=== PATIENT | male | born 1970 | race Caucasian/White ===

== ENCOUNTER 2020-12-20 17:56 | Inpatient (IN) | payer OTHER ==
[~2020-12-20] VITALS: Ht 182.9 cm; Wt 112.1 kg
[2020-12-20 18:49] LABS: BASOPHIL 0.2 % (0-2); EOSINOPHIL 0 % (0-5); HCT 46.8 % (42.0-52.0); HGB 16.3 g/dl (13.2-18.0); LYMPHOCYTE 11.7 % (15-48); MCHC 34.8 g/dL (32.0-36.0); MCV 89.1 fL (78.0-100.0); MONOCYTE 5.9 % (0-12); MPV 10.5 fL (6.0-9.5); NEUTROPHIL 81.7 % (41-80); NRBC 0; PLT 184 K/uL (150-400); RBC 5.25 M/uL (4.70-6.00); RDW 14.3 % (11.5-14.0); WBC 6.1 K/uL (4.0-10.5)
[2020-12-20 19:08] LABS: ALBUMIN 2.9 g/dL (3.4-5.0); BILIRUBIN - TOTAL 0.5 mg/dL (0.2-1.0); BUN/CREAT RATIO (CALC) 19.6 RATIO; CREATININE 1.07 mg/dL (0.67-1.17); GLOBULIN (CALCULATION) 4.3 g/dL; POTASSIUM 3.2 mmol/L (3.5-5.1); TOTAL PROTEIN 7.2 g/dL (6.4-8.2)
[2020-12-21 05:56] LABS: BASOPHIL 0.2 % (0-2); EOSINOPHIL 0 % (0-5); HCT 42.4 % (42.0-52.0); HGB 14.7 g/dl (13.2-18.0); LYMPHOCYTE 18.3 % (15-48); MCH 31.5 pg (25.0-31.0); MCHC 34.7 g/dL (32.0-36.0); MCV 90.8 fL (78.0-100.0); MONOCYTE 9.6 % (0-12); MPV 10.8 fL (6.0-9.5); NEUTROPHIL 71.3 % (41-80); NRBC 0; PLT 182 K/uL (150-400); RBC 4.67 M/uL (4.70-6.00); RDW 14.6 % (11.5-14.0)
[2020-12-21 06:50] LABS: ALBUMIN 2.6 g/dL (3.4-5.0); BILIRUBIN - TOTAL 0.5 mg/dL (0.2-1.0); BUN/CREAT RATIO (CALC) 19.1 RATIO; C-REACTIVE PROTEIN 13.5 mg/dL (<=0.90); CREATININE 1.15 mg/dL (0.67-1.17); GLOBULIN (CALCULATION) 3.2 g/dL; MAGNESIUM 2.1 mg/dL (1.8-2.4); PHOSPHORUS 2.3 mg/dL (2.6-4.7); POTASSIUM 3.8 mmol/L (3.5-5.1); TOTAL PROTEIN 5.8 g/dL (6.4-8.2)
[2020-12-22 05:55] LABS: BASOPHIL 0 % (0-2); EOSINOPHIL 0 % (0-5); HCT 42.8 % (42.0-52.0); HGB 14.5 g/dl (13.2-18.0); LYMPHOCYTE 19.2 % (15-48); MCH 30.9 pg (25.0-31.0); MCHC 33.9 g/dL (32.0-36.0); MCV 91.3 fL (78.0-100.0); MONOCYTE 7.3 % (0-12); MPV 10.3 fL (6.0-9.5); NEUTROPHIL 72.1 % (41-80); NRBC 0; PLT 264 K/uL (150-400); RBC 4.69 M/uL (4.70-6.00); RDW 14.6 % (11.5-14.0); WBC 2.9 K/uL (4.0-10.5)
[2020-12-22 06:15] LABS: BUN/CREAT RATIO (CALC) 16.3 RATIO; C-REACTIVE PROTEIN 8.7 mg/dL (<=0.90); CREATININE 0.86 mg/dL (0.67-1.17); POTASSIUM 4.3 mmol/L (3.5-5.1)
--- NOTE | 2020-12-22 15:12 | NUR ---
12/22/20 Mr. Fontana lives with his father. A referral will be made to [facility] for home 02 per patient choice if needed at discharge.
[2020-12-23 05:48] LABS: BASOPHIL 0.1 % (0-2); EOSINOPHIL 0 % (0-5); HCT 41.8 % (42.0-52.0); HGB 14.3 g/dl (13.2-18.0); LYMPHOCYTE 9.6 % (15-48); MCH 31.1 pg (25.0-31.0); MCHC 34.2 g/dL (32.0-36.0); MCV 90.9 fL (78.0-100.0); MONOCYTE 7.6 % (0-12); MPV 9.8 fL (6.0-9.5); NEUTROPHIL 81.8 % (41-80); NRBC 0; PLT 348 K/uL (150-400)
[2020-12-23 05:54] LABS: WBC 7.9 K/uL (4.0-10.5)
[2020-12-23 06:05] LABS: C-REACTIVE PROTEIN 2.5 mg/dL (<=0.90); CREATININE 0.89 mg/dL (0.67-1.17)
[2020-12-23 06:15] LABS: POTASSIUM 4.1 mmol/L (3.5-5.1)
--- NOTE | 2020-12-25 20:23 | NUR ---
Patient sitting on edge of bed. patient has been on 10-ll L NRB mask throughout today. RN tried to get patient to switch to oxymizer or maria elena mask and patient refused. Patient sitting on side of bed with head down and right side laying on head of bed. Encouraged patient to sit straight up with head forward to take deeper breaths, but patient did not seem to awknoledge RT or attempt. Told patient with his head hanging down he potentially is obstructing his upper airway and his oxygenation may improve, but patient did not respond back. RT encouraged patient to self prone while sleeping to possibly have better oxygenation. Patient stated he has been sleeping on his side, enocuraged him to rotate sides as well as try to get on his belly. Patient did do ISB with his head down and again corrected patient on his technique and to sit with his head straight up. Patient was educated on using breathing exercises and again encouraged to self prone.
[2020-12-27 08:13] LABS: BASOPHIL 0.3 % (0-2); EOSINOPHIL 0.8 % (0-5); HCT 40.8 % (42.0-52.0); HGB 14.1 g/dl (13.2-18.0); LYMPHOCYTE 8.1 % (15-48); MCH 31.4 pg (25.0-31.0); MCHC 34.6 g/dL (32.0-36.0); MCV 90.9 fL (78.0-100.0); MONOCYTE 3.2 % (0-12); MPV 9.7 fL (6.0-9.5); NEUTROPHIL 85.4 % (41-80); NRBC 0; PLT 270 K/uL (150-400); RBC 4.49 M/uL (4.70-6.00); RDW 14.2 % (11.5-14.0)
[2020-12-27 09:15] LABS: ALBUMIN 2.1 g/dL (3.4-5.0); BILIRUBIN - TOTAL 0.8 mg/dL (0.2-1.0); BUN/CREAT RATIO (CALC) 24.1 RATIO; CREATININE 0.79 mg/dL (0.67-1.17); POTASSIUM 4.3 mmol/L (3.5-5.1); TOTAL PROTEIN 6.1 g/dL (6.4-8.2)
[2020-12-29] MEDS ORDERED: VENTOLIN HFA IN18 GM INH (12:21)
[2020-12-29] MEDS ORDERED: VIBRAMYCIN100 MG PO (12:22)
[2020-12-29] MEDS ORDERED: CEFDINIR300 MG PO (12:22)
--- NOTE | 2020-12-29 13:26 | NUR ---
12/29 Rocio has delivered 02.
== END 2020-12-29 13:21 | disposition home or self-care (01) | DRG 177 ==
LOC: FER 17:56 → FTCU 21:01
PROVIDERS: Allergy & Immunology Allergy; Internal Medicine; Nurse Practitioner; ADMIT Internal Medicine
PROC: 8E0ZXY6 Isolation (ICD-10-PCS; principal; 2020-12-20)
PROC: XW033E5 Introduction of Remdesivir Anti-infective into Peripheral Vein, Percutaneous Approach, New Technology Group 5 (ICD-10-PCS; 2020-12-20)
PROC: XW0DXM6 Introduction of Baricitinib into Mouth and Pharynx, External Approach, New Technology Group 6 (ICD-10-PCS; 2020-12-20)
DX: U07.1 COVID-19 (principal); J12.82 Pneumonia due to coronavirus disease 2019; J96.01 Acute respiratory failure with hypoxia; J15.9 Unspecified bacterial pneumonia; E87.6 Hypokalemia; R03.0 Elevated blood-pressure reading, without diagnosis of hypertension; Z20.822 Contact with and (suspected) exposure to COVID-19; F41.9 Anxiety disorder, unspecified; F32.9 Major depressive disorder, single episode, unspecified; Z98.890 Other specified postprocedural states; Z79.899 Other long term (current) drug therapy
CPT/HCPCS: 36415; 36600; 71045; 71275; 80048; 80053; 82728; 82803; 83605; 83615; 83735; 84100; 84145; 84484; 85025; 85379; 86140; 87040; 93005; 94010; 94640; 94667; 94668; 94760; 94762; C9399; G0480; J0696; J1100; J1650; J1885; J2405; J7030; J7050; Q9967; U0002

== ENCOUNTER 2021-09-02 13:18 | Emergency (ER) | payer OTHER ==
[~2021-09-02] VITALS: Ht 182.9 cm; Wt 113.6 kg
[~2021-09-02 13:18] MED LIST: CEFDINIR300 MG PO; VENTOLIN HFA IN18 GM INH; VIBRAMYCIN100 MG PO
[2021-09-02 13:56] LABS: BASOPHIL 0.6 % (0-2); EOSINOPHIL 1.1 % (0-5); HCT 44.7 % (42.0-52.0); HGB 15.2 g/dl (13.2-18.0); LYMPHOCYTE 24.3 % (15-48); MCH 30.8 pg (25.0-31.0); MCV 90.5 fL (78.0-100.0); MONOCYTE 5.9 % (0-12); MPV 10.6 fL (6.0-9.5); NEUTROPHIL 67.7 % (41-80); NRBC 0; PLT 198 K/uL (150-400); RBC 4.94 M/uL (4.70-6.00); RDW 13.4 % (11.5-14.0); WBC 7.9 K/uL (4.0-10.5)
[2021-09-02 14:04] LABS: INR 1.13 (0.9-1.2); PROTHROMBIN TIME 14.2 SECONDS (11.9-13.9); PTT 26.1 SECONDS (24.9-34.6)
[2021-09-02 14:21] LABS: BUN/CREAT RATIO (CALC) 19.7 RATIO; CREATININE 1.17 mg/dL (0.67-1.17); GLOBULIN (CALCULATION) 3.5 g/dL; POTASSIUM 3.8 mmol/L (3.5-5.1); TOTAL PROTEIN 7.5 g/dL (6.4-8.2)
[2021-09-02 14:26] LABS: CKMB 1.7 ng/mL (0.0-3.6)
== END 2021-09-02 14:15 | disposition other institution (70) ==
LOC: FER 13:18
PROVIDERS: Emergency Medicine
DX: I63.50 Cerebral infarction due to unspecified occlusion or stenosis of unspecified cerebral artery (principal); R47.01 Aphasia; R20.2 Paresthesia of skin; R29.702 NIHSS score 2; Z28.311 Partially vaccinated for COVID-19
CPT/HCPCS: 36415; 70450; 71045; 80053; 80061; 82550; 82553; 83874; 84484; 85025; 85610; 85730; 93005; J2997